=== PATIENT | male | born 1985 | race Caucasian/White ===

== ENCOUNTER 2021-03-26 12:05 | Emergency (ER) | payer BC ==
[2021-03-26 14:17] LABS: CORONAVIRUS COVID-19 NAA POSITIVE (NEGATIVE); INFLUENZA A NAA NEGATIVE (NEGATIVE); INFLUENZA B NAA NEGATIVE (NEGATIVE)
== END 2021-03-26 15:02 | disposition home or self-care (01) ==
LOC: MW.ED 12:05
DX: U07.1 COVID-19 (principal)
CPT/HCPCS: 0240U; 99283